=== PATIENT | male | born 1950 | race Caucasian/White ===

== ENCOUNTER 2025-07-14 14:43 | Outpatient (CLI) | payer MEDICARE, OTHER ==
--- NOTE | 2025-07-15 07:39 | RADIOLOGY REPORT ---
CLINICAL INFORMATION: Left shoulder pain. Primary osteoarthritis of the left shoulder. [employer] for pre-surgical planning. TECHNIQUE: Axial CT images of the left shoulder were obtained without IV contrast. Coronal and sagitt al reformatted images were obtained, reviewed, and stored. All CT scans at this medical facility are performed using dose modulation techniques as appropriate to a performed exam including the followin g: Automated exposure control was utilized; adjustment of the MA and/or KV according to patient size; and use of iterative reconstruction technique. CTDIvol = 16.68, 17.01, 0.07, 0.07 mGy DLP = 735.87 m Gy-cm COMPARISON: None FINDINGS: No evidence of acute fracture. Severe osteoarthritic changes of the glenohumeral joint wit h joint space narrowing, subchondral sclerosis, subchondral cystic change, and prominent marginal ost eophytes. There is chronic deformity of the humeral head, likely secondary to arthritic changes. Ther e is up to 10 degrees glenoid retroversion. There is mild posterior decentering of the humeral head w ith respect to the articular surface of the glenoid. There is a small chronic ossicle along the poste rior aspect of the glenoid measuring up to 1.4 cm in greatest dimension. The acromial humeral interva l measures 6 mm, suggesting thinning of the supraspinatus tendon. There are [id number] arthriti c changes of the acromioclavicular joint. No significant fatty atrophy of the rotator cuff musculatur e. No significant joint effusion visualized. Soft tissues appear otherwise unremarkable. Visualized p ortions of the left lung are clear. IMPRESSION: Severe osteoarthritic changes of the glenohumeral joint as detailed above.
== END 2025-07-14 23:59 | disposition home or self-care (01) ==
LOC: RAD 14:43
PROVIDERS: ATTEND Physician Assistant
DX: M19.012 Primary osteoarthritis, left shoulder (principal); M25.512 Pain in left shoulder
CPT/HCPCS: 73200